=== PATIENT | female | born 1950 | race Caucasian/White ===

== ENCOUNTER 2016-09-20 07:44 | Day surgery (SDC) | payer OTHER ==
[~2016-09-20 07:44] MED LIST: Lidocaine 1%/Sod Bicarbonate in NS 8.4% 1 ML Syringe IV PRN; Sodium Chloride 0.9% 10 ML Syringe FLUSH PRN
[2016-09-20] MEDS: Lactated Ringers 1,000 ML IV SCH ×2 (08:05→12:40)
[2016-09-20] MEDS ORDERED: Lidocaine 1% with EPINEPHrine 1:100,000 20 ML MDV ONE (08:32)
[2016-09-20] MEDS ORDERED: Sodium Chloride 0.9% 50 ML SDV ONE (08:32)
--- NOTE | 2016-09-20 08:37 | PCM.PREANE ---
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 Respiratory: Reports: no symptoms Cardiovascular: Reports: no symptoms GI: Reports: no symptoms Other: Reports: none - PHYSICAL ASSESSMENT HR: 71 O2 Sat by Pulse Oximetry: 96 RR: 16 BP: 133/64 Temp: 37.1 C Vital Signs: Last Vital Signs Temp 37.1 C 09/20/16 07:50 Pulse 71 09/20/16 07:50 Resp 16 09/20/16 07:50 BP 133/64 09/20/16 07:50 Pulse Ox 96 09/20/16 07:50 Height: 1.68 m Weight: 72.121 kg NPO Status Date: 09/19/16 NPO Status Time: 23:30 ASA Class: 2 Mental Status: alert & oriented x3 Dentition: Reports: crown(s) Thyro-Mental Finger Breadths: 3 Mouth Opening Finger Breadths: 3 ROM/Head Extension: full Respiratory Status: lungs clear to auscultation bilaterally Cardiovascular Status: regular rate & rhythm, normal S1, S2, no murmur, blood pressure WNL - LAB Values: Laboratory Last Values WBC 4.63 K/mm3 (3.98-10.04) 09/19/16 09:37 RBC 5.06 M/mm3 (3.98-5.22) 09/19/16 09:37 Hgb 14.6 gm/L (11.2-15.7) 09/19/16 09:37 Hct 43.5 % (34.1-44.9) 09/19/16 09:37 MCV 86.0 fl (79.4-94.8) 09/19/16 09:37 MCH 28.9 pg (25.6-32.2) 09/19/16 09:37 MCHC 33.6 g/dl (32.2-35.5) 09/19/16 09:37 RDW Std Deviation 42.6 fL (36.4-46.3) 09/19/16 09:37 Plt Count 265 K/mm3 (182-369) 09/19/16 09:37 MPV 10.7 fl (9.4-12.3) 09/19/16 09:37 Sodium 141 mEq/L (136-145) 09/19/16 09:37 Potassium 3.6 mEq/L (3.5-5.1) 09/19/16 09:37 Chloride 101 mEq/L (98-107) 09/19/16 09:37 Carbon Dioxide 28 mEq/L (21-32) 09/19/16 09:37 Anion Gap 15.6 (5-15) H 09/19/16 09:37 BUN 10 mg/dL (7-18) 09/19/16 09:37 Creatinine 0.8 mg/dL (0.55-1.02) 09/19/16 09:37 Est Cr Clr Drug Dosing 66.51 mL/min 09/19/16 09:37 Estimated GFR (MDRD) > 60 mL/min (>60) 09/19/16 09:37 BUN/Creatinine Ratio 12.5 (14-18) L 09/19/16 09:37 Glucose 135 mg/dL (74-106) H 09/19/16 09:37 Calcium 8.8 mg/dL (8.5-10.1) 09/19/16 09:37 Total Bilirubin 0.6 mg/dL (0.2-1.0) 09/19/16 09:37 AST 15 U/L (15-37) 09/19/16 09:37 ALT 27 U/L (14-59) 09/19/16 09:37 Alkaline Phosphatase 66 U/L (46-116) 09/19/16 09:37 Total Protein 7.7 g/dl (6.4-8.2) 09/19/16 09:37 Albumin 4.1 g/dl (3.4-5.0) 09/19/16 09:37 Globulin 3.6 gm/dL 09/19/16 09:37 Albumin/Globulin Ratio 1.1 (1-2) 09/19/16 09:37 Urine Color Light yellow (Yellow) 09/19/16 09:37 Urine Appearance Clear (Clear) 09/19/16 09:37 Urine pH 6.5 (5.0-8.0) 09/19/16 09:37 Ur Specific [place] 1.015 (1.005-1.030) 09/19/16 09:37 Urine Protein Trace (Negative) H 09/19/16 09:37 Urine Glucose (UA) Negative (Negative) 09/19/16 09:37 Urine Ketones Negative (Negative) 09/19/16 09:37 Urine Occult Blood 2+ (Negative) H 09/19/16 09:37 Urine Nitrite Negative (Negative) 09/19/16 09:37 Urine Bilirubin Negative (Negative) 09/19/16 09:37 Urine Urobilinogen 0.2 (0.2-1.0) 09/19/16 09:37 Ur Leukocyte Esterase Trace (Negative) H 09/19/16 09:37 Blood Type O POSITIVE 09/19/16 09:37 Gel Antibody Screen Negative 09/19/16 09:37 - ALLERGIES Allergies/Adverse Reactions: Allergies Allergy/AdvReac Type Severity Reaction Status Date / Time ciprofloxacin [From Cipro] Allergy Cannot Verified 09/20/16 08:26 Remember ciprofloxacin HCl Allergy Cannot Verified 09/20/16 08:26 [From Cipro] Remember hydrocodone Allergy Cannot Verified 09/20/16 08:26 Remember Sulfa (Sulfonamide Allergy Cannot Verified 09/20/16 08:26 Antibiotics) Remember - BLOOD Blood Available: Yes - ANESTHESIA PLAN Preop Beta Brenda: No Anesthesia Type Planned: general anesthesia - ACKNOWLEDGEMENTS Pt an appropriate candidate for the planned anesthesia: Yes Alternatives and risks of anesthesia discussed w pt/guardian: Yes Pt/Guardian understands and agree with anesthesia plan: Yes PreAnesthesia Questionnaire HEENT History: Reports: Allergic rhinitis, Impaired vision Cardiovascular History: Reports: None Respiratory History: Reports: None Genitourinary History: Reports: Renal calculus 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 OB/BYN History: malignant neoplasm of breast Musculoskeletal History: Reports: Other (see below) Other Musculoskeletal History: r shoulder pain Neurological History: Reports: None Psychiatric History: Reports: None Endocrine/Metabolic History: Reports: None Hematologic History: Reports: None Oncologic (Cancer) History: Reports: Breast Dermatologic History: Reports: None - Past Surgical History Head Surgeries/Procedures: Reports: None HEENT Surgical History: Reports: Cataract surgery GI Surgical History: Reports: Cholecystectomy Female Surgical History: Reports: Mastectomy, Tubal ligation Oncologic Surgical History: Reports: Biopsy of breast, Mastectomy - SUBSTANCE USE Smoking Status *Q: Never Smoker Tobacco Use Within Last Twelve Months: No Second Hand Smoke Exposure: No Days Per Week of Alcohol Use: 0 Number of Drinks Per Day: 0 Total Drinks Per Week: 0 Recreational Drug Use History: No - HOME MEDS Home Medications: Home Meds Ascorbic Acid [Vitamin C] 500 mg PO DAILY 08/07/15 [History] Garlic 1 cap PO DAILY 09/19/16 [History] Ipratropium [place] 1 spray NASBOTH DAILY 09/19/16 [History] Olopatadine [Pataday 0.2% Ophth Soln] 1 drop EYEBOTH DAILY 09/19/16 [History] - CURRENT (IN HOUSE) MEDS Current Meds: Current Medications Lactated Ringer's (Ringers, Lactated) 1,000 mls @ 125 mls/hr IV ASDIRECTED REBEKAH Stop: 09/20/16 18:00 Last Admin: 09/20/16 08:05 Dose: 125 mls/hr Lidocaine/Sodium Bicarbonate (Buffered Lidocaine 1% In Ns 8.4%) 0.25 ml IV ONETIME PRN PRN Reason: Prior to IV Start Stop: 09/20/16 18:00 Last Admin: 09/20/16 08:04 Dose: 0.25 ml Sodium Chloride (Saline Flush) 10 ml FLUSH ASDIRECTED PRN PRN Reason: Keep Vein Open Stop: 09/20/16 18:00
[2016-09-20] MEDS ORDERED: LORazepam 2 MG/ML MDV IVPUSH ONE (09:00)
[2016-09-20] MEDS ORDERED: Rocuronium 50 MG/5 ML Vial ONE (09:21)
[2016-09-20] MEDS ORDERED: Ondansetron 4 MG/2 ML SDV ONE (09:21)
[2016-09-20] MEDS ORDERED: Propofol 200 MG/20 ML SDV ONE (09:21)
[2016-09-20] MEDS ORDERED: fentaNYL 250 MCG/5 ML SDV ONE (09:21)
[2016-09-20] MEDS ORDERED: Midazolam 1 MG/ML 2 ML SDV ONE (09:21)
[2016-09-20] MEDS ORDERED: Lidocaine 1% 2 ML SDV ONE (09:22)
[2016-09-20] MEDS ORDERED: Dexamethasone 4 MG/ML SDV ONE (09:22)
[2016-09-20] MEDS ORDERED: Ketorolac 30 MG/ML SDV ONE (09:22)
[2016-09-20] MEDS ORDERED: diphenhydrAMINE 50 MG/ML SDV ONE (09:22)
[2016-09-20] MEDS ORDERED: ceFAZolin 1 GM Vial ONE (09:27)
[2016-09-20] MEDS ORDERED: HYDROmorphone 1 MG/ML Syringe ONE (10:04)
[2016-09-20] MEDS ORDERED: Lactated Ringers 1,000 ML ONE (10:20)
[2016-09-20] MEDS ORDERED: fentaNYL 100 MCG/2 ML SDV IVPUSH PRN (11:49)
--- NOTE | 2016-09-20 11:49 | PCM.POSTAN ---
POST ANESTHESIA ASSESSMENT - MENTAL STATUS Mental Status: somnolent - VITAL SIGNS Pulse Rate: 94 SaO2: 95 Resp Rate: 8 Blood Pressure: 131/54 Temperature: 36.6 C - RESPIRATORY Respiratory Status: respiratory rate WNL, airway patent, O2 saturation stable, supplemental oxygen - CARDIOVASCULAR CV Status: pulse rate WNL, blood pressure stable - GASTROINTESTINAL GI Status: no symptoms - PAIN Pain Score: 0 - POST OP HYDRATION Hydration Status: adequate & stable - OBSERVATIONS Free Text/Narrative:: no anesthesia complications noted
--- NOTE | 2016-09-20 11:51 | PCM.OPNOTE ---
- General Post-Op/Procedure Note Date of Surgery/Procedure: 09/20/16 Operative Procedure(s): Total vaginal hysterectomy, bilateral salpingo- oophorectomy, anterior vaginal repair, posterior vaginal repair, modified Moschcowitz procedure, perineoplasty, mid-urethral subfascial sling procedure Findings: A she had a grade 3 cystocele grade 3 uterine descensus and grade 2-3 rectocele on vaginal exam under anesthesia in the supine position. Uterus was normal size. Right ovary was very small left ovary was almost nonexistent in that it was a light white streak. Pre Op Diagnosis: 1. Cystocele. 2. Rectocele. 3. Uterine descensus. 4. Stress urinary incontinence Post-Op Diagnosis: Same Anesthesia Technique: General ET tube Other Anesthesia Type: Local anesthetic with lidocaine quarter percent with epinephrine used local Primary Surgeon: Keyshawn Henson Secondary Surgeon: Felton Jones Anesthesia Provider: Maddy Quispe Fluid Replacement, Intraop: 1,900 Output, Urine Amount: 60 EBL in mLs: 250 Complications: None Condition: Good Free Text/Narrative:: Intake & Output 09/19/16 09/20/16 09/20/16 22:59 06:59 14:59 Output Total 60 Balance -60 Surgery duration: 87 minutes Complications: None Procedure: The patient is taken to the operating room and placed in the supine position on the operating table. She received 2 g of Ancef preoperatively for infection prophylaxis and had sequential compression stockings in place for DVT prophylaxis. After adequate general endotracheal anesthesia she is placed in a dorsal lithotomy position prepped and draped in usual fashion. Exam under anesthesia showed a grade 3 cystocele grade 3 uterine descensus and a grade 2-3 rectocele. She has significant cornification as was the external exposure of the vaginal epithelium. Cervix was grasped with a double-tooth tenaculum and infiltrated with lidocaine quarter percent with epinephrine-20 cc total. A full circumference incision was made around the cervix through the epithelium and this was pushed well back off the cervix. Posterior cul-de-sac was then entered. A long weighted speculum was placed in this area for retraction. The left uterosacral ligament was then grasped with a LigaSure vessel closure system and developed in routine fashion. Same was done on the right side. Eventually anterior cul-de-sac was entered without problems. The LigaSure vessel closure system was used to develop the uterine, broad ligament and eventually the upper broad ligament pedicles. At this point a Armando clamp was placed across the corneal area of the fallopian tube and upper broad ligament on each side and the specimen was completely removed. He side the ovary was removed along with fallopian tube. Left ovary was very difficult to visualize. Were very atrophic secondary to menopause. It is questionable whether there was a left ovary or possibly and most a small white streak. At this time the pursestring suture was placed. The suture was tied down after hemostasis was confirmed and sponge instrument needle counts are correct. The anterior vaginal repair was performed. The vaginal epithelium overlying the cystocele was then applied using a midline Allis clamp approximately 3 cm from the urethral meatus long enough room closer to the urethral meatus to put in the subfascial sling mesh. The cystocele was then reduced in routine fashion after dissection of the epithelium off the underlying as the vaginal fascia. Approximately 5 box shaped sutures of 0 Monocryl were placed reapproximating the lateral vesicovaginal fascia midline in resupported and the bladder. Excess mucosa was removed bilaterally with this scissors. The epithelium was then reapproximated midline with 3-0 Monocryl suture into short running segments. The bladder was drained of urine with a red rubber catheter. The subfascial mid- urethral sling procedures and performed a separate incision was made overlying the urethra and 2 cm in length. A subfascial plane was developed bilaterally. Small stab wounds were placed in me aspect of the obturator foramen just posterior to the origin of the abductor muscles on each side. The helical applicator was then placed through the duplicator punch operator into the sub-fascial plane of the vagina mesh was attached to this and brought out through each of these openings. The mesh was pulled up to within a tension free position below the urethra. The mucosa was closed with 3-0 Monocryl suture. The skin incisions were closed with Dermabond glue A modified Moschcowitz stitch was placed of passing stitch to the posterior aspect of the vaginal cuff the internal peritoneum then over to the right uterosacral ligament bunching of the posterior cul-de-sac peritoneum back over to the left uterosacral ligament and then back through the midline site to the outside of the vagina. This was eventually tied down to eliminate superior cul- de-sac space. The vaginal cuff was then closed with a running lock suture of 0 Monocryl. After the cuff was closed posterior repair was performed. The upper most aspect of the vaginal epithelium was grasped midline with an Allis clamp as was the epithelium at the introital area at 4:00 and 8:00 position in such a fashion that when reapproximated midline and reduce the caliber of the vagina from for fingerbreadth caliber to a 2 fingerbreadth caliber. The vaginal epithelium and the perineal epithelium infiltrated with the same lidocaine with epinephrine solution. Approximately 10 cc. A danisha-shaped piece of tissue was removed from the introital area posteriorly the epithelium overlying the rectocele was then undermined and dissection this performed bilaterally taken to retain as much rectovaginal fascia as possible. This time then the 3-4 square shaped stitches were placed to reapproximate vesicovaginal fascia midline. Excess mucosa was removed and the epithelium was closed with running suture of 3-0 Monocryl. Perineoplasty was performed placing 3 V-type stitches in the perineal body reapproximating tissues midline rebuilding the perineum approximately 1 cm and extended vagina approximately 1 cm in change in the angle of vagina. An attempt was made to maintain 2 fingerbreadth caliber and full finger length depth to the vagina. The procedure was then discontinued. Blood was removed from the vagina. Blunt instrument and needle counts are correct. Patient was awakened from general endotracheal anesthesia and left the operating room in good condition.
[2016-09-20] MEDS ORDERED: Ondansetron 4 MG/2 ML SDV IVPUSH PRN (14:15)
[2016-09-20] MEDS ORDERED: traMADol 50 MG Tab PO PRN (14:15)
[2016-09-20] MEDS: Ibuprofen 800 MG Tab PO SCH (16:14)
[2016-09-20] MEDS: Docusate Sodium 100 MG Cap PO SCH (20:16)
[2016-09-21] MEDS: Ibuprofen 800 MG Tab PO SCH ×2 (00:12→15:55)
--- NOTE | 2016-09-21 06:58 | PCM.DCSUM1 ---
Discharge Summary - Hospital Course Free Text/Narrative:: Patient was admitted yesterday for post surgical care. She underwent a total vaginal hysterectomy with bilateral salpingo-oophorectomy, anterior and posterior vaginal para, modified Moschcowitz procedure, subfascial mid-urethral sling procedure. She had discomfort and was interested in stay in overnight. She was done well throughout the night. She's had a low bit of urine dribbling but is doing well. Her vital signs stable. Pain is well controlled. She wishes to be discharged - Discharge Data Discharge Date: 09/21/16 Discharge Disposition: Home, Self-Care Condition: Good - Patient Summary/Data Operative Procedure(s) Performed: Total vaginal hysterectomy, bilateral salpingo -oophorectomy, anterior vaginal repair, posterior vaginal repair, modified Moschcowitz procedure, perineoplasty, mid-urethral subfascial sling procedure - Patient Instructions Diet: Regular Diet as Tolerated Activity: As Tolerated (No intercourse or tampons until seen back. No lifting greater than 15 pounds or driving a car x1 week.) Driving: Do Not Drive Showering/Bathing: May Shower (Or take a bath) Wound/Incision Care: Change Dressing Daily Notify Provider of: Fever, Increased Pain, Swelling and Redness, Drainage, Nausea and/or Vomiting - Discharge Plan Home Medications: Home Meds Ascorbic Acid [Vitamin C] 500 mg PO DAILY 08/07/15 [History] Garlic 1 cap PO DAILY 09/19/16 [History] Ipratropium Epes 1 spray NASBOTH DAILY 09/19/16 [History] Olopatadine [Pataday 0.2% Ophth Soln] 1 drop EYEBOTH DAILY 09/19/16 [History] Ibuprofen [IJD: Ibuprofen] 800 mg PO Q8H tablet 09/21/16 [Rx] traMADol [Ultram] 50 mg PO Q4H PRN #30 tablet 09/21/16 [Rx] Referrals: Keyshawn Henson MD [Primary Care Provider] - (Return to clinic-Dr. Henson-4 weeks-[facility] - Discharge Summary/Plan Comment DC Time >30 min.: No Discharge Summary/Plan Comment: Discharge instructions: 1. Discharge home 2. Regular, high fiber diet 3. Precautions given concern increased pain, bleeding, temperature, sign/ symptoms of DVT/PE 4. Activity and followup discussed in detail with patient 5. Medications per medication was printed, discussed with him given to the patient 6. Return to clinic-Dr. Henson 4 weeks-[facility]. Diagnosis: Pelvic organ prolapse, stress incontinence-status post surgery Condition: Good - Patient Data Vitals - Most Recent: Last Vital Signs Temp 36.6 C 09/21/16 03:58 Pulse 66 09/21/16 03:55 Resp 18 09/21/16 03:55 BP 116/53 L 09/21/16 03:55 Pulse Ox 98 09/21/16 03:55 Weight - Most Recent: 74.571 kg I&O - Last 24 hours: Intake & Output 09/20/16 09/20/16 09/21/16 14:59 22:59 06:59 Intake Total 0 1360 Output Total 120 1946 600 Balance 1930 -586 -600 Lab Results - Last 24 hrs: Laboratory Results - last 24 hr 09/21/16 Range/Units 04:50 WBC 9.32 (3.98-10.04) K/mm3 RBC 4.05 (3.98-5.22) M/mm3 Hgb 11.6 (11.2-15.7) gm/L Hct 35.5 (34.1-44.9) % MCV 87.7 (79.4-94.8) fl MCH 28.6 (25.6-32.2) pg MCHC 32.7 (32.2-35.5) g/dl RDW Std Deviation 42.4 (36.4-46.3) fL Plt Count 213 (182-369) K/mm3 MPV 10.9 (9.4-12.3) fl Neut % (Auto) 73.0 H (34.0-71.1) % Lymph % (Auto) 16.6 L (19.3-51.7) % Wise % (Auto) 10.2 (4.7-12.5) % Eos % (Auto) 0 L (0.7-5.8) Baso % (Auto) 0.1 (0.1-1.2) % Neut # 6.80 H (1.56-6.13) K/mm3 Lymph # 1.55 (1.18-3.74) K/mm3 Wise # 0.95 H (0.24-0.36) K/mm3 Eos # 0.00 L (0.04-0.36) K/mm3 Baso # 0.01 (0.01-0.08) K/mm3 Med Orders - Current: Current Medications Docusate Sodium (Colace) 100 mg PO BID [facility] Last Admin: 09/20/16 20:16 Dose: 100 mg Ibuprofen (Motrin) 800 mg PO Q8H [facility] Last Admin: 09/21/16 00:12 Dose: 800 mg Ondansetron HCl (Zofran) 4 mg IVPUSH Q4H PRN PRN Reason: Nausea/Vomiting Tramadol HCl (Ultram) 50 mg PO Q4H PRN PRN Reason: Pain Discontinued Medications Cefazolin Sodium (Ancef) Confirm Administered Dose 2 gm .ROUTE .STK-MED ONE Stop: 09/20/16 09:28 Dexamethasone (Dexamethasone) Confirm Administered Dose 4 mg .ROUTE .STK-MED ONE Stop: 09/20/16 09:23 Diphenhydramine HCl (Benadryl) Confirm Administered Dose 50 mg .ROUTE .STK-MED ONE Stop: 09/20/16 09:23 Fentanyl (Sublimaze) Confirm Administered Dose 250 mcg .ROUTE .STK-MED ONE Stop: 09/20/16 09:22 Fentanyl (Sublimaze) 50 mcg IVPUSH Q5M PRN PRN Reason: PAIN Stop: 09/20/16 18:00 Hydromorphone HCl (Dilaudid) Confirm Administered Dose 1 mg .ROUTE .STK-MED ONE Stop: 09/20/16 10:05 Lactated Ringer's (Ringers, Lactated) 1,000 mls @ 125 mls/hr IV ASDIRECTED [facility] Stop: 09/20/16 18:00 Last Admin: 09/20/16 12:40 Dose: 125 mls/hr Lactated Ringer's (Ringers, Lactated) Confirm Administered Dose 1,000 mls @ as directed .ROUTE .STK-MED ONE Stop: 09/20/16 10:21 Ketorolac Tromethamine (Toradol) Confirm Administered Dose 30 mg .ROUTE .STK- MED ONE Stop: 09/20/16 09:23 Lidocaine HCl (Lidocaine 1%) Confirm Administered Dose 4 ml .ROUTE .STK-MED ONE Stop: 09/20/16 09:23 Lidocaine/Epinephrine (Xylocaine 1% With Epinephrine 1:100,000) Confirm Administered Dose 20 ml .ROUTE .STK-MED ONE Stop: 09/20/16 08:33 Last Admin: 09/20/16 09:56 Dose: 15 ml Lidocaine/Sodium Bicarbonate (Buffered Lidocaine 1% In Ns 8.4%) 0.25 ml IV ONETIME PRN PRN Reason: Prior to IV Start Stop: 09/20/16 18:00 Last Admin: 09/20/16 08:04 Dose: 0.25 ml Lorazepam (Ativan) 0.5 mg IVPUSH ONETIME ONE Stop: 09/20/16 09:01 Last Admin: 09/20/16 09:00 Dose: 0.5 mg Midazolam HCl (Versed 1 Mg/Ml) Confirm Administered Dose 2 mg .ROUTE .STK-MED ONE Stop: 09/20/16 09:22 Ondansetron HCl (Zofran) Confirm Administered Dose 4 mg .ROUTE .STK-MED ONE Stop: 09/20/16 09:22 Propofol (Diprivan 20 Ml) Confirm Administered Dose 200 mg .ROUTE .STK-MED ONE Stop: 09/20/16 09:22 Rocuronium Epes (Zemuron) Confirm Administered Dose 50 mg .ROUTE .STK-MED ONE Stop: 09/20/16 09:22 Sodium Chloride (Saline Flush) 10 ml FLUSH ASDIRECTED PRN PRN Reason: Keep Vein Open Stop: 09/20/16 18:00 Sodium Chloride (Normal Saline) Confirm Administered Dose 50 ml .ROUTE .STK-MED ONE Stop: 09/20/16 08:33 Last Admin: 09/20/16 09:56 Dose: 45 ml *Q Meaningful Use (DIS) - VTE *Q VTE Criteria *Q: - Stroke *Q Stroke Criteria *Q: - AMI *Q AMI Criteria *Q:
[2016-09-21] MEDS: Docusate Sodium 100 MG Cap PO SCH (08:25)
[2016-09-21 14:40] VITALS: BP 113/48
== END 2016-09-21 17:20 | disposition home or self-care (01) ==
LOC: JD.SDS 07:44 → JD.OB 11:39 → UNDOADMOB 11:39 → JD.SDS 09-21 17:20 → UNDODISOB 09-21 17:20
PROVIDERS: ATTEND Obstetrics & Gynecology
DX: N72 Inflammatory disease of cervix uteri (principal); N83.01 Follicular cyst of right ovary; N83.02 Follicular cyst of left ovary; Z88.1 Allergy status to other antibiotic agents; Z88.2 Allergy status to sulfonamides; Z88.8 Allergy status to other drugs, medicaments and biological substances; Z79.899 Other long term (current) drug therapy; Z90.49 Acquired absence of other specified parts of digestive tract; Z98.51 Tubal ligation status; Z98.890 Other specified postprocedural states
CPT/HCPCS: 36415; 57260; 57288; 58262; 80053; 81003; 85025; 85027; 86850; 86900; 86901; 88307; A9270; C1771; J0690; J1100; J1170; J1200; J1885; J2060; J2250; J2405; J3010; J7120; 00944; J2704

== ENCOUNTER 2016-09-25 07:52 | Emergency (ER) | payer OTHER ==
--- NOTE | 2016-09-25 08:15 | EDM.PDOC ---
ED HPI Skin/Rash - General Chief Complaint: Wound Recheck Stated Complaint: CHECK INCISION Time Seen by Provider: 09/25/16 08:12 Source: Reports: Patient History Limitations: Reports: No limitations - History of Present Illness INITIAL COMMENTS - FREE TEXT/NARRATIVE: 66-year-old female who underwent total of vaginal hysterectomy with BSO as well as an anterior posterior repair the abdomen and I suspect a urethral sling by way she described the surgery presents the ED for evaluation of the wound particularly in the floor of the vagina. She was seen to the ED yesterday with constipation postoperatively and did get her bowels working with a moderate degree of pain initially after taking oral Citroma. Bladder function seems to be okay. She noticed some discharge on her panty liner overnight. Does contain some blood. She has no fever or chills.surgeries performed by Dr. Henson [place] [employer] on August 20. Symptom Onset Date: 09/24/16 (noticed increased serous drainage on her pad overnight.) Timing: Reports: still present Location, Skin: Reports: other (vaginal) Quality: Reports: Sharp Severity: mild Known Identified Source: yes (recent A&P repair as well as total bowel vaginal hysterectomy and BSO.) Place of Occurrence: home Sick Contact: no Associated Symptoms: Denies: no other symptoms, confusion, headaches, seizure, shortness of breath, syncope, weakness, chest pain, cough, sputum, fever/chills , diaphoresis, malaise, loss of appetite, nausea/vomiting, rash Similar Symptoms Previously: yes (but not as much. 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 (currently doing well on Motrin alone for pain relief), Other (see below) - Related Data Allergies Allergy/AdvReac Type Severity Reaction Status Date / Time ciprofloxacin [From Cipro] Allergy Cannot Verified 09/25/16 08:03 Remember ciprofloxacin HCl Allergy Cannot Verified 09/25/16 08:03 [From Cipro] Remember hydrocodone Allergy Cannot Verified 09/25/16 08:03 Remember Sulfa (Sulfonamide Allergy Cannot Verified 09/25/16 08:03 Antibiotics) Remember Home Meds: Ambulatory Orders Medication Instructions Recorded Confirmed Ascorbic Acid [Vitamin C] 500 mg PO DAILY 08/07/15 09/24/16 Garlic 1 cap PO DAILY 09/19/16 09/24/16 Ipratropium [place] 1 spray NASBOTH DAILY 09/19/16 09/24/16 Olopatadine [Pataday 0.2% Ophth 1 drop EYEBOTH DAILY 09/19/16 09/24/16 Soln] Ibuprofen [IJD: Ibuprofen] 800 mg PO Q8H tablet 09/21/16 09/24/16 traMADol [Ultram] 50 mg PO Q4H PRN #30 tablet 09/21/16 09/24/16 Magnesium Citrate [Citrate of 296 ml PO ONETIME #1 bottle 09/24/16 Magnesia] Past Medical History HEENT History: Reports: Allergic rhinitis, Impaired vision Cardiovascular History: Reports: None Respiratory History: Reports: None Genitourinary History: Reports: Renal calculus [employer]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 OB/BYN History: malignant neoplasm of breast, 3 vaginal deliveries Musculoskeletal History: Reports: Other (see below) Other Musculoskeletal History: r shoulder pain Neurological History: Reports: None Psychiatric History: Reports: None Endocrine/Metabolic History: Reports: None Hematologic History: Reports: None Oncologic (Cancer) History: Reports: Breast Dermatologic History: Reports: None - Past Surgical History HEENT Surgical History: Reports: Cataract surgery GI Surgical History: Reports: Cholecystectomy Female Surgical History: Reports: Mastectomy, Tubal ligation Oncologic Surgical History: Reports: Biopsy of breast, Mastectomy Social & Family History - Family History Family Medical History: Noncontributory - Tobacco Use Smoking Status *Q: Never Smoker Second Hand Smoke Exposure: No - Caffeine Use Caffeine Use: Reports: Tea - Alcohol Use Days Per Week of Alcohol Use: 0 Number of Drinks Per Day: 0 Total Drinks Per Week: 0 - Recreational Drug Use Recreational Drug Use: No - Living Situation & Occupation Living situation: Reports: Occupation: employed ED ROS GENERAL - Review of Systems Review Of Systems: See Below Constitutional: Reports: malaise, fatigue. Denies: fever, chills, weight loss HEENT: Reports: No symptoms Respiratory: Reports: no symptoms Cardiovascular: Reports: No symptoms Endocrine: Reports: fatigue GI/Abdominal: Reports: Constipation (improved yesterday after use of oral Citroma. She was seen through the ED yesterday.). Denies: Abdominal pain, Anorexia, Black stool, Bloody stool, Diarrhea, Difficulty swallowing, Distension , Hematemesis : Reports: no symptoms (initially she had quite a time getting her bladder working in with a lot of dysuria but this has cleared up now. She feels she is voiding pretty close to normal), other (having increased discharge on her pad overnight from the vagina. This contained blood in it. He did have a) Musculoskeletal: Reports: no symptoms Skin: Reports: no symptoms Neurological: Reports: no symptoms Psychiatric: Reports: No symptoms ED EXAM, SKIN/RASH Exam: See Below Exam Limited By: No limitations General Appearance: alert, WD/WN, anxious, mild distress Neck: normal inspection, supple, non-tender, full range of motion. No: lymphadenopathy (L), lymphadenopathy (R) Respiratory/Chest: no respiratory distress, lungs clear, normal breath sounds, no accessory muscle use, chest non-tender Cardiovascular: normal peripheral pulses, regular rate, rhythm, no edema, no gallop, no JVD, no rub GI/Abdominal: normal bowel sounds, soft, non tender, no organomegaly, no distention (Female) Exam: Other (the suture sites at the lateral aspect of the mid vulva bilaterally are from sling procedure and are healing well. There is one suture that has extruded itself from the rectocele repair with some mild serosanguineous drainage. The wound itself is healing adequately.) Rectal (Female) Exam: Normal Exam Back Exam: normal inspection, full range of motion. No: CVA tenderness (L), CVA tenderness (R) Extremities: normal inspection, normal range of motion, non-tender, no pedal edema Neurological: alert, oriented, CN II-XII intact, normal cognition Psychiatric: anxious (mild) Skin: Warm, Dry, Intact, Normal color Course - Vital Signs Last Recorded V/S: Last Vital Signs Temp 36.2 C 09/25/16 07:57 Pulse 72 09/25/16 07:57 Resp 16 09/25/16 07:57 BP 142/67 H 09/25/16 07:57 Pulse Ox 99 09/25/16 07:57 - Radiology Interpretation Free Text/Narrative:: 66-year-old female presents the ED for evaluation of vaginal wounds. She had a total abdominal hysterectomy and BSO as well as a rectocele and cystocele repair with bladder sling procedure on [address] Henson. She was seen to the ED yesterday because her bowels have not been moving her bowels did move quite frequently yesterday afternoon after taking oral Citroma obstructed by ED physician. First few bowel movements were quite painful and she was therefore worried that she had torn rectocele repair. She noticed increased serosanguineous discharge on her pad overnight. No really increased pain in the area. She was voiding well. Examination reveals the sling sites to be normal. She has one suture that has dehisced from the rectocele repair approximately 2 and half into the vaginal canal. The wound itself is not actively bleeding and there is normal is serous drainage. Patient reassured no signs of infection. Continue sitz baths twice daily and follow up with Dr. Henson as planned. Departure - Departure Time of Disposition: 08:13 Disposition: Home, Self-Care 01 Condition: fair Clinical Impression: Encounter for wound re-check Instructions: Incision Care, [id number] Referrals: Keyshawn Henson MD [Primary Care Provider] - Forms: ED Department Discharge Additional Instructions: evaluation in the emergency this morning in regards to wound review. Last Monday you underwent total abdominal hysterectomy and BSO which remains removal of ovaries and fallopian tubes. There is also an associated repair of the cystocele and rectocele. On my examination today there is normal serous drainage from the rectocele and cystocele repairs. However the sutures are intact in the wounds are healing adequately. There is no evidence of wound infection. Urethral sling procedure appears to been carried out as well and those wounds to appear to be healing satisfactorily. By history her bowels are moving yesterday with Citroma by mouth. At this time sitz baths for 10 minutes twice daily is all that is indicated and continue ibuprofen as needed for pain relief. Followup with Dr. Henson as planned for postoperative care.
== END 2016-09-25 08:26 | disposition home or self-care (01) ==
LOC: JD.ED 07:52
CPT/HCPCS: 99281; 99283

== ENCOUNTER 2017-05-18 20:16 | Emergency (ER) | payer BC, OTHER ==
[2017-05-18 20:23] VITALS: BP 162/74
[2017-05-18] MEDS ORDERED: Ketorolac 30 MG/ML SDV IVPUSH ONE (20:26)
[2017-05-18] MEDS ORDERED: Ondansetron 4 MG/2 ML SDV IVPUSH ONE (20:26)
--- NOTE | 2017-05-18 20:27 | EDM.PDOC ---
ED HPI GENERAL MEDICAL PROBLEM - General Chief Complaint: Flank Pain Stated Complaint: Flank pain Time Seen by Provider: 05/18/17 20:27 Source of Information: Reports: Patient, RN Notes Reviewed History Limitations: Reports: No Limitations - History of Present Illness INITIAL COMMENTS - FREE TEXT/NARRATIVE: 66 year old female presents to the ED today with complaints of sudden onset of severe, colicky left flank pain. The pain radiates around her side. The pain is described as severe. She is restless and anxious. She has a history of kidney stones. She also has been experiencing nausea and vomiting. No constipation or diarrhea. She denies dysuria, hematuria, frequency, urgency, fever or chills. No changes in bowel habits, black stools, tarry stools, or blood in stools. Left Flank Pain Score (Numeric/FACES): 10 - Related Data Allergies Allergy/AdvReac Type Severity Reaction Status Date / Time ciprofloxacin [From Cipro] Allergy Cannot Verified 05/18/17 20:23 Remember ciprofloxacin HCl Allergy Cannot Verified 05/18/17 20:23 [From Cipro] Remember hydrocodone Allergy Cannot Verified 05/18/17 20:23 Remember Sulfa (Sulfonamide Allergy Cannot Verified 05/18/17 20:23 Antibiotics) Remember Home Meds: Home Meds Ascorbic Acid [Vitamin C] 500 mg PO DAILY 08/07/15 [History] Garlic 1 cap PO DAILY 09/19/16 [History] Ipratropium [place] 1 spray NASBOTH DAILY 09/19/16 [History] Olopatadine [Pataday 0.2% Ophth Soln] 1 drop EYEBOTH DAILY 09/19/16 [History] Ibuprofen [IJD: Ibuprofen] 800 mg PO Q8H tablet 09/21/16 [Rx] traMADol [Ultram] 50 mg PO Q4H PRN #30 tablet 09/21/16 [Rx] Magnesium Citrate [Citrate of Magnesia] 296 ml PO ONETIME #1 bottle 09/24/16 [Rx ] Tamsulosin [Flomax] 0.4 mg PO DAILY #10 cap.er 05/18/17 [Rx] Past Medical History HEENT History: Reports: Allergic Rhinitis, Impaired Vision Cardiovascular History: Reports: None Respiratory History: Reports: None Genitourinary History: Reports: Renal Calculus 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 OB/BYN History: malignant neoplasm of breast, 3 vaginal deliveries Musculoskeletal History: Reports: Other (See Below) Other Musculoskeletal History: r shoulder pain Neurological History: Reports: None Psychiatric History: Reports: None Endocrine/Metabolic History: Reports: None Hematologic History: Reports: None Oncologic (Cancer) History: Reports: Breast Dermatologic History: Reports: None - Past Surgical History HEENT Surgical History: Reports: Cataract Surgery GI Surgical History: Reports: Cholecystectomy Female Surgical History: Reports: Mastectomy, Tubal Ligation Oncologic Surgical History: Reports: Biopsy of Breast, Mastectomy Social & Family History - Family History Family Medical History: Noncontributory - Tobacco Use Smoking Status *Q: Never Smoker Second Hand Smoke Exposure: No - Caffeine Use Caffeine Use: Reports: Tea - Alcohol Use Days Per Week of Alcohol Use: 0 Number of Drinks Per Day: 0 Total Drinks Per Week: 0 - Recreational Drug Use Recreational Drug Use: No - Living Situation & Occupation Living situation: Reports: Occupation: Employed ED ROS GENERAL - Review of Systems Review Of Systems: See Below Constitutional: Reports: No Symptoms. Denies: Fever, Chills, Diaphoresis Respiratory: Reports: No Symptoms. Denies: Shortness of Breath Cardiovascular: Reports: No Symptoms. Denies: Chest Pain GI/Abdominal: Reports: Nausea, Vomiting. Denies: Abdominal Pain, Black Stool, Bloody Stool, Constipation, Diarrhea : Reports: Flank Pain. Denies: Dysuria, Frequency, Hematuria, Urgency ED EXAM, RENAL/ - Physical Exam Exam: See Below Exam Limited By: No Limitations General Appearance: Alert, Anxious, Severe Distress, Other (pacing the room, restless, crying) Respiratory/Chest: No Respiratory Distress, Lungs Clear, Normal Breath Sounds Cardiovascular: Regular Rate, Rhythm GI/Abdominal: Normal Bowel Sounds, Soft, Non-Tender, No Distention Back Exam: Normal Inspection, Full Range of Motion, CVA Tenderness (L). No: CVA Tenderness (R) Neurological: Alert, Oriented, Normal Gait Skin Exam: Warm, Dry, Intact Course - Vital Signs Last Recorded V/S: Last Vital Signs Temp 98.2 F 05/18/17 20:21 Pulse 80 05/18/17 20:21 Resp 22 H 05/18/17 20:21 BP 162/74 H 05/18/17 20:21 Pulse Ox 100 05/18/17 20:21 - Orders/Labs/Meds Orders: Active Orders 24 hr Category Date Time Status Peripheral IV Care [RC] . DIRECTED Care 05/18/17 20:39 Active Abdomen Pelvis wo Cont [CT] Stat Exams 05/18/17 20:39 Taken Sodium Chloride 0.9% [Saline Flush] Med 05/18/17 20:39 Active 10 ml FLUSH ASDIRECTED PRN Peripheral IV Insertion Adult [OM.PC] Stat Oth 05/18/17 20:39 Ordered Medication Orders Sodium Chloride (Saline Flush) 10 ml FLUSH ASDIRECTED PRN PRN Reason: Keep Vein Open Last Admin: 05/18/17 20:47 Dose: 10 ml Labs: Laboratory Tests 05/18/17 05/18/17 05/18/17 Range/Units 20:20 20:20 21:45 WBC 7.98 (3.98-10.04) K/mm3 RBC 5.16 (3.98-5.22) M/mm3 Hgb 14.6 (11.2-15.7) gm/L Hct 43.6 (34.1-44.9) % MCV 84.5 (79.4-94.8) fl MCH 28.3 (25.6-32.2) pg MCHC 33.5 (32.2-35.5) g/dl RDW Std Deviation 43.0 (36.4-46.3) fL Plt Count 266 (182-369) K/mm3 MPV 10.9 (9.4-12.3) fl Neut % (Auto) 62.6 (34.0-71.1) % Lymph % (Auto) 24.6 (19.3-51.7) % [place] % (Auto) 11.2 (4.7-12.5) % Eos % (Auto) 1.0 (0.7-5.8) Baso % (Auto) 0.5 (0.1-1.2) % Neut # (Auto) 5.00 (1.56-6.13) K/mm3 Lymph # (Auto) 1.96 (1.18-3.74) K/mm3 [place] # (Auto) 0.89 H (0.24-0.36) K/mm3 Eos # (Auto) 0.08 (0.04-0.36) K/mm3 Baso # (Auto) 0.04 (0.01-0.08) K/mm3 Sodium 142 (136-145) mEq/L Potassium 3.4 L (3.5-5.1) mEq/L Chloride 104 (98-107) mEq/L Carbon Dioxide 25 (21-32) mEq/L Anion Gap 16.4 H (5-15) BUN 14 (7-18) mg/dL Creatinine 1.0 (0.55-1.02) mg/dL Est Cr Clr Drug Dosing 53.20 mL/min Estimated GFR (MDRD) 56 (>60) mL/min BUN/Creatinine Ratio 14.0 (14-18) Glucose 106 (80-115) mg/dL Calcium 9.1 (8.5-10.1) mg/dL Total Bilirubin 0.4 (0.2-1.0) mg/dL AST 19 (15-37) U/L ALT 30 (14-59) U/L Alkaline Phosphatase 69 (46-116) U/L Total Protein 8.2 (6.4-8.2) g/dl Albumin 4.3 (3.4-5.0) g/dl Globulin 3.9 gm/dL Albumin/Globulin Ratio 1.1 (1-2) Urine Color Yellow (Yellow) Urine Appearance Clear (Clear) Urine pH 6.0 (5.0-8.0) Ur Specific [place] > or = 1.030 (1.005-1.030) Urine Protein 2+ H (Negative) Urine Glucose (UA) Negative (Negative) Urine Ketones Trace H (Negative) Urine Occult Blood 3+ H (Negative) Urine Nitrite Negative (Negative) Urine Bilirubin Negative (Negative) Urine Urobilinogen 0.2 (0.2-1.0) Ur Leukocyte Esterase Negative (Negative) Urine RBC 30-40 H (0-5) /hpf Urine WBC 0-5 (0-5) /hpf Ur Epithelial Cells 0-5 (0-5) /hpf Urine Bacteria Few (FEW) /hpf Urine Mucus Not seen (FEW) /hpf Meds: Medications Generic Name Dose Route Start Last Admin Trade Name Freq PRN Reason Stop Dose Admin Sodium Chloride 10 ml 05/18/17 20:39 05/18/17 20:47 Saline Flush FLUSH 10 ml ASDIRECTED PRN Administration Keep Vein Open Discontinued Medications Generic Name Dose Route Start Last Admin Trade Name Freq PRN Reason Stop Dose Admin Fentanyl 50 mcg 05/18/17 20:32 05/18/17 20:38 Sublimaze IVPUSH 05/18/17 20:33 50 mcg ONETIME ONE Administration Fentanyl 50 mcg 05/18/17 21:59 05/18/17 22:06 Sublimaze IVPUSH 05/18/17 22:00 50 mcg ONETIME ONE Administration Sodium Chloride 1,000 mls @ 999 mls/hr 05/18/17 20:39 05/18/17 20:46 Normal Saline IV 05/18/17 21:39 999 mls/hr ONETIME ONE Administration Ketorolac Tromethamine 30 mg 05/18/17 20:26 05/18/17 20:33 Toradol IVPUSH 05/18/17 20:27 30 mg ONETIME ONE Administration Ondansetron HCl 4 mg 05/18/17 20:26 05/18/17 20:31 Zofran IVPUSH 05/18/17 20:27 4 mg ONETIME ONE Administration Oxycodone/Acetaminophen 1 tab 05/18/17 22:26 05/18/17 22:31 Percocet 325-5 Mg PO 05/18/17 22:27 1 tab ONETIME ONE Administration Tamsulosin HCl 0.4 mg 05/18/17 22:26 05/18/17 22:31 Flomax PO 05/18/17 22:27 0.4 mg ONETIME ONE Administration - Re-Assessments/Exams Free Text/Narrative Re-Assessment/Exam: CBC and CMP are normal. UA is positive for hematuria. CT of abdomen/pelvis obtained. Patient found to have 10mm kidney stone at left UPJ with moderate hydronephrosis and perinephric stranding. I spoke to Dr. Campbell who recommends that patient call Dr. Bruno's office in the morning. She was treated with IV fluids, Toradol, Fentanyl and Zofran. She was also given Flomax and Percocet. She will be discharged home with instructions to call the clinic right away tomorrow morning. She is to return to the ED if she is unable to manage her pain, if she develops a fever, or with any additional concerns. Rxs sent to [facility]: Percocet 5/325 tabs, 1-2 every 4-6 hours PRN #20 , Zofran 4mg ODT 1 tab every 8 hours PRN n/v #15. Departure - Departure Time of Disposition: 22:26 Disposition: Home, Self-Care 01 Condition: Good Clinical Impression: Kidney stone on left side - Discharge Information Prescriptions: Tamsulosin [Flomax] 0.4 mg PO DAILY #10 cap.er Referrals: PCP,None [Primary Care Provider] - Forms: ED Department Discharge Additional Instructions: Flomax 0.4mg once daily, start tomorrow afternoon Zofran 4mg tab every 8 hours as needed for nausea Percocet 1-2 tabs every 4-6 hours as needed for pain No driving for at least 6-8 hours after taking Percocet Drink at least 80 oz of water per day Strain all urine Call Dr. Bruno's office in the morning to schedule. Number is [phone]. If you are unable to manage your pain at home or develop a fever, return to our ER or go to [facility] ER in [place] - My Orders Last 24 Hours: My Active Orders 05/18/17 20:39 Peripheral IV Care [RC] . DIRECTED Abdomen Pelvis wo Cont [CT] Stat Sodium Chloride 0.9% [Saline Flush] 10 ml FLUSH ASDIRECTED PRN Peripheral IV Insertion Adult [OM.PC] Stat - Assessment/Plan Last 24 Hours: My Active Orders 05/18/17 20:39 Peripheral IV Care [RC] . DIRECTED Abdomen Pelvis wo Cont [CT] Stat Sodium Chloride 0.9% [Saline Flush] 10 ml FLUSH ASDIRECTED PRN Peripheral IV Insertion Adult [OM.PC] Stat
[2017-05-18] MEDS ORDERED: fentaNYL 100 MCG/2 ML SDV IVPUSH ONE ×2 (20:32→21:59)
[2017-05-18] MEDS ORDERED: Sodium Chloride 0.9% 1,000 ML IV ONE (20:39)
[2017-05-18] MEDS ORDERED: Sodium Chloride 0.9% 10 ML Syringe FLUSH PRN (20:39)
[2017-05-18] MEDS ORDERED: Acetaminophen/oxyCODONE 325-5 MG Tab PO ONE (22:26)
[2017-05-18] MEDS ORDERED: Tamsulosin 0.4 MG Cap.ER PO ONE (22:26)
--- NOTE | 2017-05-19 08:05 | CT ---
CT abdomen and pelvis Technique: Multiple axial sections were obtained from the top of the liver inferiorly through the pubic symphysis. Intravenous and oral contrast not utilized. Study has been performed as a ureteral stone protocol. Comparison: Prior abdominal x-ray of 09/24/[address] abdomen and pelvis exam of 03/04/13. Findings: Nonobstructing stone is noted within the left kidney measuring 8 mm. Obstructing stone located at the UPJ measuring 1.0 cm. Inflammatory change is seen around the renal pelvis and kidney secondary to the obstruction at the UPJ. No other ureteral calculi are seen on the right or left sides. Visualized lung bases show nothing acute. Noncontrast appearance of the liver and spleen are within normal limits. Adrenal glands show no nodule. Surgical clips seen from prior cholecystectomy. Pancreas appears within normal limits. Aorta shows atherosclerotic change which continues into the iliac vessels without aneurysm. No retroperitoneal adenopathy or mesenteric abnormalities are seen. Mild diverticuli are seen within the sigmoid colon. Additional inflammatory change or free fluid is seen within the abdomen or pelvis. Bone window settings were reviewed which appear within normal limits for the patient's age. Impression: 1. 1 cm obstructing stone within the left renal pelvis at the UPJ. This causes surrounding inflammatory change. 2. Other incidental findings as noted above. Diagnostic code #3 Agree with preliminary report issued by [facility] ([facility] preliminary report dictated on 05/18/17, 11:11 PM Central Time)
== END 2017-05-18 22:52 | disposition home or self-care (01) ==
LOC: JD.ED 20:16
DX: N13.2 Hydronephrosis with renal and ureteral calculous obstruction (principal); Z88.1 Allergy status to other antibiotic agents; Z88.2 Allergy status to sulfonamides; Z79.899 Other long term (current) drug therapy
CPT/HCPCS: 36415; 74176; 80053; 81001; 85025; 96361; 96374; 96375; 96376; 99284; A9270; J1885; J2405; J3010; J7040; J7050